=== PATIENT | female | born 1940 | race Caucasian/White ===

== ENCOUNTER 2018-01-30 07:09 | Inpatient (IN) ==
[2018-01-30] MEDS ORDERED: Metoprolol Tartrate 25 MG Tablet PO ONE (07:45)
[2018-01-30] MEDS ORDERED: Sodium Chlor 0.9% Inj 500 ML IV.CONT ONE (07:45)
[2018-01-30] MEDS ORDERED: Chlorhexidine Gluconate 2% 1 Pack (2 Cloths) TOPICAL ONE (07:45)
[2018-01-30] MEDS ORDERED: ceFAZolin 2 GM Premix Inj 2 GM/50 ML PIGGYBACK IV.SIG ONE (08:00)
[2018-01-30 08:36] LABS: Baso # (Auto) 0.1 th/mm3 (0.0-0.2); Baso % (Auto) 1.7 % (0.0-2.0); Eos # (Auto) 0.1 th/mm3 (0.0-0.4); Eos % (Auto) 3.6 % (0.0-4.0); Hematocrit 33.5 % (35.0-46.0); Hemoglobin 10.7 gm/dL (11.6-15.3); Lymph # (Auto) 0.9 th/mm3 (1.0-4.8); Mean Corpuscular HGB Conc 31.9 % (32.0-36.0); Mean Corpuscular Hemoglobin 25.7 pg (27.0-34.0); Mean Corpuscular Volume 80.7 fL (80.0-100.0); Mean Platelet Volume 8.2 fL (7.0-11.0); Mono # (Auto) 0.3 th/mm3 (0.0-0.9); Neut # (Auto) 1.9 th/mm3 (1.8-7.7); Neut % (Auto) 58.7 % (16.0-70.0); Platelet Count 251 th/mm3 (150-450); Red Blood Count 4.15 mil/mm3 (4.00-5.30); Red Cell Distribution Width 18.9 % (11.6-17.2); White Blood Count 3.3 th/mm3 (4.0-11.0)
[2018-01-30] MEDS ORDERED: Bupivacaine/Epinephrine Inj 0.25% 50 ML Vial ONE (09:55)
[2018-01-30] MEDS ORDERED: Post-op Orders (for Pharmacy) OTHER ONE (14:06)
[2018-01-30] MEDS ORDERED: Naloxone Inj 0.4 MG/ML Vial IV.PUSH PRN ×2 (14:06→14:10)
[2018-01-30] MEDS ORDERED: HYDROmorphone PCA Inj 6 MG/30 ML PCA.VIAL PCA PRN (14:10)
--- NOTE | 2018-01-30 14:14 | P.OP ---
- Preoperative Diagnosis (1) GI bleed (2) Cecum mass - Postoperative Diagnosis (1) GI bleed (2) Cecum mass Date of procedure: 01/30/18 Procedure: Laparoscopic assisted right hemicolectomy Anesthesia: LAINEYA Surgeon: Angelo Browne MD Road Conductor: Gabriela FIELDS Estimated blood loss (mL): 30 Pathology: other (Terminal ileum and right colon) Operation and Findings: Operative findings: The patient had a large cecal mass with omentum adherent to the cecum. A portion of the omentum was left en bloc with the specimen. Small hemangioma at the dome of the liver. The spleen appears somewhat abnormally enlarged and scarred.
[2018-01-30] MEDS ORDERED: fentaNYL Citrate Inj 100 MCG/2 ML Ampul ONE (14:18)
[2018-01-30] MEDS ORDERED: *morphine SULFATE 10 MG/ML PERIprocedure ONLY ONE (14:26)
[2018-01-30] MEDS ORDERED: *Meperidine Inj 25 MG/ML Vial PERIprocedural Use ONLY ONE (15:23)
[2018-01-30] MEDS: Ketorolac Inj 30 MG/ML (IVP) Vial IV.PUSH SCH ×2 (17:49→21:13)
[2018-01-30] MEDS ORDERED: Zolpidem Tartrate 5 MG Tablet PO PRN (21:00)
[2018-01-30] MEDS: ALPRAZolam 0.25 MG Tablet PO PRN (22:26)
[2018-01-31] MEDS: Ketorolac Inj 30 MG/ML (IVP) Vial IV.PUSH SCH ×4 (03:00→21:08)
[2018-01-31 06:19] LABS: Baso % (Auto) 0.2 % (0.0-2.0); Hematocrit 26.8 % (35.0-46.0); Hemoglobin 8.9 gm/dL (11.6-15.3); Lymph # (Auto) 0.7 th/mm3 (1.0-4.8); Lymph % (Auto) 8.2 % (9.0-44.0); Mean Corpuscular HGB Conc 33.3 % (32.0-36.0); Mean Corpuscular Hemoglobin 26.1 pg (27.0-34.0); Mean Corpuscular Volume 78.3 fL (80.0-100.0); Mean Platelet Volume 7.9 fL (7.0-11.0); Mono # (Auto) 0.5 th/mm3 (0.0-0.9); Mono % (Auto) 5.7 % (0.0-8.0); Neut # (Auto) 7.7 th/mm3 (1.8-7.7); Neut % (Auto) 85.9 % (16.0-70.0); Platelet Count 210 th/mm3 (150-450); Red Blood Count 3.42 mil/mm3 (4.00-5.30); Red Cell Distribution Width 19.4 % (11.6-17.2); White Blood Count 8.9 th/mm3 (4.0-11.0)
--- NOTE | 2018-01-31 10:08 | P.PNGS ---
Subjective Patient reports: no new complaints, pain is less, tolerating liquids well, no flatus Physical Exam Vital signs: Vital Signs 01/30/18 14:12 01/30/18 14:13 01/30/18 14:15 Temperature 96.5 F L Pulse Rate 66 66 Respiratory Rate 19 16 Blood Pressure 169/70 H 164/77 H Pulse Oximetry 100 100 01/30/18 14:28 01/30/18 14:30 01/30/18 14:45 Temperature Pulse Rate 66 67 Respiratory Rate 18 14 14 Blood Pressure 173/81 H 176/85 H Pulse Oximetry 100 100 01/30/18 15:00 01/30/18 15:15 01/30/18 15:30 Temperature 97 F L Pulse Rate 69 69 70 Respiratory Rate 18 19 21 Blood Pressure 175/87 H 176/84 H 165/80 H Pulse Oximetry 01/30/18 15:45 01/30/18 15:47 01/30/18 15:50 Temperature Pulse Rate 66 Respiratory Rate 16 16 Blood Pressure 161/73 H Pulse Oximetry 100 01/30/18 16:15 01/30/18 19:53 01/30/18 20:00 Temperature 97.4 F L 97.1 F L Pulse Rate 66 79 Respiratory Rate 20 2 L 20 Blood Pressure 187/80 H 210/91 H Pulse Oximetry 100 99 01/31/18 00:00 01/31/18 04:00 01/31/18 06:00 Temperature 97.6 F 97.7 F Pulse Rate 72 67 Respiratory Rate 18 18 16 Blood Pressure 167/80 H 163/73 H Pulse Oximetry 96 96 01/31/18 08:00 Temperature 97.7 F Pulse Rate 71 Respiratory Rate 20 Blood Pressure 163/77 H Pulse Oximetry 96 Intake & Output 01/30/18 01/31/18 01/31/18 18:59 06:59 18:59 Intake Total 2300 / 2300 1780 / 1780 Output Total 695 / 695 700 / 700 Balance 1605 / 1605 1080 / 1080 Weight 54.7 kg 50.5 kg Intake: IV 300 / 300 1300 / 1300 LR 1000 mL Inj 1,000 ML @ 100 1000 / 1000 mls/hr IV.CONT .Q10H [facility] Rx#: [id number] Ofirmev Inj 1,000 mg In 100 ml 100 / 100 300 / 300 @ 400 mls/hr IV.SIG Q6H [facility] Rx# :[id number] Ancef 2 GM Premix Inj 2 gm In 100 / 100 50 ml @ 100 mls/hr IV.SIG SHAFT TENDER ONE Rx#:[id number] Flagyl 500 MG Inj 100 ML @ 100 100 / 100 mls/hr IV.SIG SHAFT TENDER ONE Rx#: [id number] Oral 480 / 480 Anesthesia Amount 2000 / 1999 Output: Urine 375 / 375 Estimated Blood Loss 20 / 20 Urine Amount (Catheter) 300 / 300 700 / 700 Indwelling Urethral Catheter 300 / 300 700 / 700 Other: Weight On Admission 54.7 kg - Constitutional no acute distress - Routine Abdominal Exam Present: soft, tenderness Comments: incision C/D/I - Urinary Catheter Management Indwelling Urethral Catheter Cath placed during this visit: no Reason for continuing: Hourly intake/output Results - Labs 01/31/18 06:05 Laboratory Results - last 24 hr 01/30/18 01/31/18 07:55 06:05 WBC 8.9 D RBC 3.42 L Hgb 8.9 L Hct 26.8 L MCV 78.3 L MCH 26.1 L MCHC 33.3 RDW 19.4 H Plt Count 210 MPV 7.9 Neut % (Auto) 85.9 H Lymph % (Auto) 8.[address] [place] % (Auto) 5.7 Eos % (Auto) 0.0 Baso % (Auto) 0.2 Neut # (Auto) 7.7 Lymph # (Auto) 0.[address] [place] # (Auto) 0.5 Eos # (Auto) 0.0 Baso # (Auto) 0.0 WBC Differential . Differential Comment Auto diff final Blood Type B Positive Antibody Screen Negative MTS Gel Crossmatch See Detail Bld Prod Order Comment Assessment and Plan - Assessment (1) S/P colectomy Code(s): Z90.49 - Acquired absence of other specified parts of digestive tract Status: Acute Plan: d/c mejia d/c supervisor rose grading - Plan d/c mejia ambulate full liquids d/c supervisor rose grading
[2018-01-31] MEDS: Enoxaparin Inj 40 MG/0.4 ML Syringe SQ SCH (15:00)
[2018-01-31] MEDS: Atenolol 25 MG Tablet PO SCH (18:43)
[2018-01-31] MEDS: ALPRAZolam 0.25 MG Tablet PO PRN (21:08)
[2018-02-01] MEDS: Ketorolac Inj 30 MG/ML (IVP) Vial IV.PUSH SCH ×4 (04:07→20:06)
[2018-02-01] MEDS: Atenolol 25 MG Tablet PO SCH (08:09)
--- NOTE | 2018-02-01 09:11 | P.PNGS ---
Subjective Patient reports: no flatus, no bowel movement (c/o worsening abd pain) Physical Exam Vital signs: Vital Signs 01/31/18 12:00 01/31/18 16:00 01/31/18 20:00 Temperature 97.4 F L 98.4 F 98.2 F Pulse Rate 66 74 72 Respiratory Rate 20 20 20 Blood Pressure 162/75 H 160/73 H 188/77 H Pulse Oximetry 97 98 98 02/01/18 00:00 02/01/18 04:00 02/01/18 08:00 Temperature 98.9 F 97.5 F L 97.6 F Pulse Rate 74 72 74 Respiratory Rate 20 20 20 Blood Pressure 163/75 H 197/93 H 175/78 H Pulse Oximetry 94 L 96 98 Intake & Output 01/31/18 02/01/18 02/01/18 18:59 06:59 18:59 Intake Total 2490 / 2490 120 / 120 Balance 2490 / 2490 120 / 120 Weight 50.4 kg Intake: IV 2130 / 2130 LR 1000 mL Inj 1,000 ML @ 100 2030 / 2030 mls/hr IV.CONT .Q10H [facility] Rx#: [id number] Ofirmev Inj 1,000 mg In 100 ml 100 / 100 @ 400 mls/hr IV.SIG Q6H [place] Rx# :[id number] Oral 360 / 360 120 / 120 Other: # Voids 3 3 # Bowel Movements 0 - Constitutional mild distress Comments: secondary to pain - Routine Abdominal Exam Present: tenderness, distended - Urinary Catheter Management Indwelling Urethral Catheter Cath placed during this visit: no Reason for continuing: Hourly intake/output Results - Labs 01/31/18 06:05 Assessment and Plan - Assessment (1) S/P colectomy Code(s): Z90.49 - Acquired absence of other specified parts of digestive tract Status: Acute Plan: NPO, IVF will start Reglan Tylenol for pain - Plan NPO prokinetic Tylenol for pain
[2018-02-01] MEDS ORDERED: Dextrose 5%/NaCl 0.45% Inj 1,000 ML IV.CONT SCH (10:00)
[2018-02-01] MEDS: KCL 20 mEq/D5W/NaCl 0.45% Inj 1,000 ML IV.CONT SCH ×2 (10:23→20:06)
[2018-02-01] MEDS: Enoxaparin Inj 40 MG/0.4 ML Syringe SQ SCH (12:47)
[2018-02-01] MEDS: ALPRAZolam 0.25 MG Tablet PO PRN (21:54)
[2018-02-02] MEDS: Ketorolac Inj 30 MG/ML (IVP) Vial IV.PUSH SCH ×4 (02:09→21:06)
[2018-02-02] MEDS: KCL 20 mEq/D5W/NaCl 0.45% Inj 1,000 ML IV.CONT SCH (06:05)
--- NOTE | 2018-02-02 09:19 | XR ---
EXAM DATE: 02/02/2018 9:14 AM EST AGE/SEX: 77 years / Female INDICATIONS: Shortness of breath. CLINICAL DATA: This is the patient's subsequent encounter. Patient reports that signs and symptoms h ave been present for 1 week and indicates a pain score of 0/10. MEDICAL/SURGICAL HISTORY: Hypertension. . [place] [facility] [place]. . FINDINGS: Heart is minimally enlarged. There is minimal consolidation and fluid in the right base. Left lung is clear. The portion of the bony skeleton visualized is unremarkable. CONCLUSION: Consolidation fluid in the right base somewhat suspicious for inflammatory process. Mild cardiomegaly without overt failure. Electronically signed by: Landon Aguayo MD Board Certified Radiologist 02/02/2018 9:17 AM EST
[2018-02-02] MEDS: Atenolol 25 MG Tablet PO SCH (09:31)
[2018-02-02] MEDS: ALPRAZolam 0.25 MG Tablet PO PRN ×2 (10:17→23:50)
--- NOTE | 2018-02-02 11:25 | P.PNGS ---
Subjective Interval history: She c/o pain at incision but is receiving only tylenol and toradol. Was made NPO yesterday and she ended up having multiple liquid Bms last night. C/o some shortness of breath. Physical Exam Vital signs: Vital Signs 02/01/18 12:00 02/01/18 14:37 02/01/18 16:00 Temperature 98.1 F 98.1 F Pulse Rate 69 69 64 Respiratory Rate 22 22 Blood Pressure 183/89 H 166/77 H 148/72 H Pulse Oximetry 99 22 L 02/01/18 20:00 02/01/18 21:09 02/02/18 00:00 Temperature 97.7 F 98.3 F Pulse Rate 65 68 Respiratory Rate 16 16 17 Blood Pressure 171/79 H 169/79 H Pulse Oximetry 99 98 02/02/18 03:55 02/02/18 04:00 02/02/18 08:00 Temperature 98.1 F Pulse Rate 65 78 Respiratory Rate 16 20 Blood Pressure 150/72 H 223/95 H Pulse Oximetry 98 Intake & Output 02/01/18 02/02/18 02/02/18 18:59 06:59 18:59 Intake Total 580 / 580 1999 Output Total 4 / 4 Balance 576 / 576 1999 Weight 62.4 kg Intake: IV 100 / 100 1999 D5W/1/2NS + KCL 20 mEq Inj , 1999 000 ML @ 100 mls/hr IV.CONT . Q10H [facility] Rx#:[id number] Ofirmev Inj 1,000 mg In 100 ml 100 / 100 @ 400 mls/hr IV.SIG Q6H PRN Rx# :[id number] Oral 480 / 480 Output: Urine 4 / 4 Other: # Voids 1 3 Date of Last Bowel Movement 02/01/18 02/01/18 # Bowel Movements 3 Narrative: NAD, comfortable in bed Abd: soft, inc c/d/i - Urinary Catheter Management Indwelling Urethral Catheter Cath placed during this visit: no Reason for continuing: Hourly intake/output Results - Labs 01/31/18 06:05 Laboratory Results - last 24 hr 01/30/18 07:55 MTS Gel Crossmatch See Detail - Imaging Imaging: ITS Impressions Chest X-Ray 02/02/18 00:00 CONCLUSION: Consolidation fluid in the right base somewhat suspicious for inflammatory process. Mild cardiomegaly without overt failure. Assessment and Plan - Assessment (1) S/P colectomy Code(s): Z90.49 - Acquired absence of other specified parts of digestive tract Status: Acute - Plan POD 3 s/p right colectomy. + Bms. Hgb decreased. + SOB. Soft diet. Start lortab. Repeat cbc. Check CXR. Possible dc home in am.
[2018-02-02 11:36] LABS: Hematocrit 29.2 % (35.0-46.0); Hemoglobin 9.3 gm/dL (11.6-15.3); Mean Corpuscular Hemoglobin 25.7 pg (27.0-34.0); Mean Corpuscular Volume 80.6 fL (80.0-100.0); Mean Platelet Volume 8.2 fL (7.0-11.0); Platelet Count 224 th/mm3 (150-450); Red Blood Count 3.62 mil/mm3 (4.00-5.30); White Blood Count 5.4 th/mm3 (4.0-11.0)
--- NOTE | 2018-02-02 13:25 | P.OP ---
- Preoperative Diagnosis (1) GI bleed (2) Cecum mass - Postoperative Diagnosis (1) GI bleed (2) Cecum mass Date of procedure: 01/30/18 Procedure: Laparoscopic assisted right hemicolectomy Anesthesia: MARKIE Surgeon: Angelo Browne MD Revenue Accounting Manager: Gabriela FIELDS Estimated blood loss (mL): 30 Pathology: other (right colon with attached terminal ileum) Operation and Findings: Operative findings: The patient had a large cecal mass with omentum adherent to the cecum. A portion of the omentum was left en bloc with the specimen. Small hemangioma at the dome of the liver. The spleen appears somewhat abnormally enlarged and scarred. Procedure in detail: The patient was taken to the operating room and placed in supine position. General endotracheal anesthesia was induced. The abdomen was prepped and draped in usual sterile fashion and a surgical timeout was performed to verify correct patient procedure and site. Valerio catheter was placed. Local anesthetic was injected in the skin and subcutaneous tissue to the left of the umbilicus and a 5 mm incision made. The 5 mm Optiview trocar with laparoscope in place was used to directly enter the abdomen which was then insufflated to 15 mmHg with CO2 gas which the patient tolerated well. A 5 mm port was then placed in the lower midline and another in the upper left abdomen. The patient was placed in Trendelenburg and turned to the left. Attention was turned to the cecum. A large mass was obvious and there was omentum adherent to the cecum. The omentum adherent to the cecum was amputated with the harmonic scalpel leaving a portion of the omentum en bloc with the specimen. The lateral peritoneum at the terminal ileum and cecum was incised with the harmonic scalpel and the white line of Toldt all the way up to the hepatic flexure was incised. Blunt dissection and use of the harmonic scalpel provided further mobilization laterally. The patient is thin and the colon is quite mobile. At this point, the gastrocolic omentum is from the transverse colon from the midportion proximally. The hepatic flexure was taken down with harmonic scalpel. The entire specimen is now quite mobile. A transverse incision is made in the right abdomen. Dissection is carried through subcutaneous tissue with electrocautery and the anterior fascia. Rectus muscle fibers were elevated and divided with cautery. The posterior rectus fascia was sharply entered. The specimen is able to easily be brought up through the incision. The ileocolic artery pedicle is isolated and ligated with 2 #1 Vicryl ties and divided. The mesentery was divided with the harmonic scalpel to the terminal ileum 10-15 cm from the ileocecal valve. The terminal ileum then was divided with the blue load 75 mm stapler. Next, the right branch of the middle colic vessels was divided with the harmonic scalpel. The remaining mesentery was divided. The transverse colon was divided with the 75 mm blue load stapler. The specimen was removed. A koqi-[id number] functional end- to-end anastomosis was then fashioned between the terminal ileum and transverse colon using a blue load stapler. A 3-0 silk suture was placed at the crotch of the staple line. There is no bleeding no tension or hematoma at the anastomosis. The end enterotomy was closed with a TX 60 blue load stapler. The mesenteric defect then was approximated with running 3-0 silk. The anastomosis was then replaced into the abdominal cavity. The fascia was closed with running #1 PDS suture in 2 layers. Skin closed with a wide skin stapler. The skin at the port sites was closed with subcuticular 4-0 Monocryl and Dermabond. The patient tolerated the procedure well and was extubated taken to PACU in stable condition.
[2018-02-02] MEDS: Enoxaparin Inj 40 MG/0.4 ML Syringe SQ SCH (14:05)
[2018-02-02 23:51] VITALS: RESP 20
[2018-02-03] MEDS: Ketorolac Inj 30 MG/ML (IVP) Vial IV.PUSH SCH ×2 (05:33→08:21)
[2018-02-03] MEDS: Atenolol 25 MG Tablet PO SCH (08:20)
[2018-02-03 09:43] VITALS: BP 180/88; PULSE 71; TEMP 98; O2SAT 96
--- NOTE | 2018-02-03 11:10 | P.DS ---
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 She was scheduled for lap assisted right colectomy. DS: Diagnosis - Discharge Diagnosis (1) S/P colectomy Status: Acute (2) Cecum mass Status: Acute DS: Medications - Discharge Medications Prescriptions: hydrocodone-acetaminophen 1 tab PO Q4H PRN #15 tab PRN Reason: Pain ketorolac 10 mg PO Q6H PRN #12 tab PRN Reason: Pain DS: Summary Hospital Course: Post op from lap assisted right colectomy the patient did well overall. She ambulated well. She initially was not tolerating oral intake but began to have multiple bowel movts, no nausea, and tolerated soft foods well. Pain controlled with toradol and a few narcotic po meds although she tried to avoid narcotics. - Time Spent with Patient Total time spent providing and/or coordinating discharge services: Less than 30 minutes - Quality: VTE Deep Vein Thrombosis/Pulmonary Embolism Present on Admission: No Exam Vital signs: Vital Signs 02/02/18 12:00 02/02/18 16:00 02/02/18 20:00 Temperature 97.3 F L 97.7 F 97.4 F L Pulse Rate 63 64 66 Respiratory Rate 17 16 19 Blood Pressure 167/69 H 174/84 H 163/75 H Pulse Oximetry 98 97 02/02/18 23:50 02/03/18 04:00 02/03/18 08:05 Temperature 97.2 F L 98 F Pulse Rate 70 71 Respiratory Rate 20 20 Blood Pressure 197/90 H 144/70 H 180/88 H Pulse Oximetry 100 96 Intake & Output 02/02/18 02/03/18 02/03/18 18:59 06:59 18:59 Intake Total 800 / 800 1300 / 1300 Balance 800 / 800 1300 / 1300 Weight 62.4 kg Intake: IV 800 / 800 D5W/1/2NS + KCL 20 mEq Inj 1, 550 / 550 000 ML @ 100 mls/hr IV.CONT . Q10H [facility] Rx#:[id number] LR 1000 mL Inj 1,000 ML @ 100 250 / 250 mls/hr IV.CONT .Q10H [facility] Rx#: [id number] Oral 1300 / 1300 Other: # Voids 2 Date of Last Bowel Movement 02/03/18 02/03/18 # Bowel Movements 1 Narrative: NAD Abd: soft, mild post op ttp, inc c/d/i Results Procedures completed during hospitalization: Lap assisted right colectomy Completed studies during hospitalization: Pending at discharge 01/30/18 14:22 Surgical [PTH] Routine Labs on day of discharge: Labs from last 24 hours 02/02/18 11:20 WBC 5.4 RBC 3.62 L Hgb 9.3 L Hct 29.2 L MCV 80.6 MCH 25.7 L MCHC 32.0 RDW 19.0 H Plt Count 224 MPV 8.2 - Impressions ITS Impressions Chest X-Ray 02/02/18 00:00 CONCLUSION: Consolidation fluid in the right base somewhat suspicious for inflammatory process. Mild cardiomegaly without overt failure. Discharge Plan - Discharge Disposition Patient Disposition: 01 Discharge Home - Discharge Condition Condition: Good - Discharge Order Discharge Orders: Discharge Order (Routine); Ordered 02/03/18 Ordered By: Angelo Browne - Physicians Team Primary Care Provider: Wu Orourke Attending Provider: Angelo Browne - Rxs /Orders / Referrals /Forms Prescriptions: New hydrocodone-acetaminophen 5-325 mg Tablet 1 tab PO Q4H PRN (Reason: Pain) Qty: 15 RF: 0 ketorolac 10 mg Tablet 10 mg PO Q6H PRN (Reason: Pain) Qty: 12 RF: 0 Continue alprazolam 0.25 mg Tablet 0.25 mg PO BID atenolol 25 mg Tablet 25 mg PO DAILY Discontinued acetaminophen [Tylenol] 325 mg Tablet 325 mg PO Q4-6H MDD 500 PRN (Reason: Pain, Moderate) Referrals: Angelo Browne MD [GENERAL SURGERY] - 02/16/18 9:30 am Wu Orourke MD, PhD [Primary Care Provider] - See Instructions (Office will call you to schedule follow up appointment ) - Discharge Instructions Patient Printed Instructions: Hydrocodone/Acetaminophen (By mouth), Ketorolac ( By mouth), Laparoscopic Bowel Resection (DC)
== END 2018-02-03 11:41 | disposition home or self-care (01) ==
LOC: HSDI 07:09 → N07 16:06
PROVIDERS: ADMIT Surgery; ATTEND Surgery

== ENCOUNTER 2018-04-03 06:37 | Inpatient (IN) ==
--- NOTE | 2018-04-03 07:26 | ED ---
HPI General Chief Complaint: Chest Pain Stated Complaint: Chest Pain Time Seen by Provider: 04/03/18 06:55 History of Present Illness HPI narrative: This is a 73-year-old female with history of colon cancer, hypertension, iron deficiency, presents today with complaints of chest pain/ pressure starting early this morning. Patient states she woke up at 130 with pressure across her chest. She states that she also felt palpitations associated with it. She states that she took a half of a Xanax and 162 mg of aspirin despite being told not to take aspirin. She states she was able to go back to sleep however woke up at 3:30 with the same pressure. She denies any radiation associated with it. She denies any true dyspnea. There is no nausea or diaphoresis associated with it. The patient has not had anything like this previously. Related Data Home Medications Medication Instructions Recorded Confirmed alprazolam 0.25 mg PO BID 01/21/18 04/03/18 atenolol 25 mg PO DAILY 01/21/18 04/03/18 capecitabine 1,500 mg PO Q12H 04/03/18 04/03/18 Allergies Allergy/AdvReac Type Severity Reaction Status Date / Time cyclobenzaprine Allergy Severe Restlessnes Verified 01/30/18 07:43 [From Flexeril] s shellfish derived Allergy Severe Rash Verified 01/30/18 07:43 Review of Systems ROS: all other systems reviewed are negative Constitutional Reports system reviewed and no additional complaints, except as [facility] Eyes Reports system reviewed and no additional complaints, except as [facility] ENT Reports system reviewed and no additional complaints, except as [facility] Cardiovascular Reports chest pain (Pressure), Denies irregular heart rhythm, Reports palpitations and Denies dyspnea Respiratory Denies cough and Denies dyspnea Gastrointestinal Denies abdominal pain, Denies nausea and Denies vomiting Genitourinary Reports system reviewed and no additional complaints, except as [facility] Musculoskeletal Reports system reviewed and no additional complaints, except as [facility] Neurologic Reports system reviewed and no additional complaints, except as [facility] PMFSH Medical History Medical History Colon cancer (Acute) Anxiety (Acute) Back pain (Acute) History of DVT (deep vein thrombosis) (Acute) History of blood product transfusion (Acute) History of phlebitis (Acute) Hypertension (Acute) Raynaud disease (Acute) Shortness of breath (Acute) Surgical History Surgical History History of D&C (Acute) History of appendectomy (Acute) History of breast implant (Acute) History of cataract extraction with lens replacement (Acute) Social History Social History Substance History: No History of Abuse Second Hand Smoke Exposure: No Smoking Status: Never smoker How Often Do You Have a Drink Containing Alcohol: Never Recent Travel in [facility] within the Last 8 Weeks: No Recent Out of Country Travel within the Last 8 Weeks: No Immunization History Tetanus Immunization: Unsure Exam Narrative Exam Narrative: GENERAL: Well-developed well-nourished female who appears anxious in no acute respiratory distress. SKIN: Focused skin assessment warm/dry. HEAD: Atraumatic. Normocephalic. EYES: Extraocular muscles were intact. No scleral icterus. No injection or drainage. ENT: No nasal bleeding or discharge. Mucous membranes pink and moist. NECK: Trachea midline. Supple. No JVD. CARDIOVASCULAR: Regular rate and rhythm. No murmur appreciated. RESPIRATORY: No accessory muscle use. Clear to auscultation. Breath sounds equal bilaterally. GASTROINTESTINAL: Abdomen soft, non-tender, nondistended. MUSCULOSKELETAL: No obvious deformities. No clubbing. No cyanosis. No edema. NEUROLOGICAL: Awake and alert. No obvious cranial nerve deficits. Motor grossly within normal limits. Normal speech. Course Initial Documented Vital Signs Temperature 98.0 F 04/03/18 06:43 Pulse Rate 79 04/03/18 06:43 Respiratory Rate 18 04/03/18 06:43 Blood Pressure 213/100 H 04/03/18 06:43 Pulse Oximetry 100 04/03/18 06:43 Last Documented Vital Signs Temperature 98.0 F 04/03/18 06:43 Pulse Rate 69 04/03/18 08:31 Respiratory Rate 18 04/03/18 08:31 Blood Pressure 171/79 H 04/03/18 08:31 Pulse Oximetry 100 04/03/18 08:31 Medical Decision Making MDM Narrative Medical decision making narrative: This is a 77-year-old female with history of colon cancer, status post colectomy, who is on oral chemotherapy, presents today with complaints of chest pressure x2 episodes this morning. Patient was given nitroglycerin in the [facility] ambulance. She reports it took her pain from an 8 down to a 0. She is still pain-free. EKG showed no evidence of acute ST elevation or depression. Cardiac enzymes were within normal limits. I discussed that given her symptoms, cardiac history of hypertension, and age, I would recommend that she be admitted to the chest pain center for rule out protocol. She is amenable to this plan. Medical Screen Exam Complete: Yes Emergency Medical Condition: Yes Differential Diagnosis Differential Diagnosis: ACS versus anxiety versus GERD versus chemo related adverse reaction Lab Data Result diagrams: 04/03/18 06:45 04/03/18 06:45 Lab Results 04/03/18 04/03/18 Range/Units 06:45 06:45 WBC 5.4 (4.0-11.0) th/mm3 RBC 4.41 (4.00-5.30) mil/mm3 Hgb 11.4 L (11.6-15.3) gm/dL Hct 35.1 (35.0-46.0) % MCV 79.6 L (80.0-100.0) fL MCH 25.9 L (27.0-34.0) pg MCHC 32.6 (32.0-36.0) % RDW 20.7 H (11.6-17.2) % Plt Count 214 (150-450) th/mm3 MPV 7.6 (7.0-11.0) fL Neut % (Auto) 69.8 (16.0-70.0) % Lymph % (Auto) 24.7 (9.0-44.0) % [place] % (Auto) 5.0 (0.0-8.0) % Eos % (Auto) 0.1 (0.0-4.0) % Baso % (Auto) 0.4 (0.0-2.0) % Neut # (Auto) 3.7 (1.8-7.7) th/mm3 Lymph # (Auto) 1.3 (1.0-4.8) th/mm3 [place] # (Auto) 0.3 (0.0-0.9) th/mm3 Eos # (Auto) 0.0 (0.0-0.4) th/mm3 Baso # (Auto) 0.0 (0.0-0.2) th/mm3 WBC Differential . Differential Comment Auto diff final Sodium 134 L (136-145) meq/L Potassium 4.1 (3.5-5.1) meq/L Chloride 101 (98-107) meq/L Carbon Dioxide 25.5 (21.0-32.0) meq/L Anion Gap 8 (5-15) meq/L BUN 15 (7-18) mg/dL Creatinine 0.81 (0.50-1.00) mg/dL Estimated GFR 69 L (>89) mL/min Random Glucose 114 H (74-106) mg/dL Calcium 9.4 (8.5-10.1) mg/dL Total Bilirubin 0.2 (0.2-1.0) mg/dL AST 18 (15-37) U/L ALT 16 (10-53) U/L Alkaline Phosphatase 57 (45-117) U/L Total Creatine Kinase 48 (26-192) U/L Troponin I 0.04 (0.02-0.05) ng/mL Total Protein 7.4 (6.4-8.2) g/dL Albumin 3.9 (3.4-5.0) g/dL Imaging Data Radiologist's impression: Chest X-Ray 04/03/18 06:55 CONCLUSION: No focal or acute pulmonary infiltrates. Discharge Plan Discharge Disposition Patient Disposition: ED Admit(ED Internal Use Only) Discharge Order Discharge Orders: ED Use Only Admit Order (Routine); Ordered 04/03/18 Ordered By: Kike Brunner Discharge Details Diagnosis: Chest pain, Hypertension, History of colon cancer Physicians Team ED Provider: Kike Brunner Primary Care Provider: Wu Orourke Attending Provider: Mónica Muñoz ED Status: Admitted Observation Patient
[2018-04-03 07:35] LABS: Baso % (Auto) 0.4 % (0.0-2.0); Eos % (Auto) 0.1 % (0.0-4.0); Hematocrit 35.1 % (35.0-46.0); Hemoglobin 11.4 gm/dL (11.6-15.3); Lymph # (Auto) 1.3 th/mm3 (1.0-4.8); Lymph % (Auto) 24.7 % (9.0-44.0); Mean Corpuscular HGB Conc 32.6 % (32.0-36.0); Mean Corpuscular Hemoglobin 25.9 pg (27.0-34.0); Mean Corpuscular Volume 79.6 fL (80.0-100.0); Mean Platelet Volume 7.6 fL (7.0-11.0); Mono # (Auto) 0.3 th/mm3 (0.0-0.9); Neut # (Auto) 3.7 th/mm3 (1.8-7.7); Neut % (Auto) 69.8 % (16.0-70.0); Platelet Count 214 th/mm3 (150-450); Red Blood Count 4.41 mil/mm3 (4.00-5.30); Red Cell Distribution Width 20.7 % (11.6-17.2); White Blood Count 5.4 th/mm3 (4.0-11.0)
[2018-04-03 07:57] LABS: Albumin 3.9 g/dL (3.4-5.0); Anion Gap 8 meq/L (5-15); Aspartate Aminotransferase 18 U/L (15-37); Blood Urea Nitrogen 15 mg/dL (7-18); Calcium 9.4 mg/dL (8.5-10.1); Carbon Dioxide 25.5 meq/L (21.0-32.0); Chloride 101 meq/L (98-107); Glomerular Filtration Rate 69 mL/min (>89); Glucose,Random 114 mg/dL (74-106); Potassium 4.1 meq/L (3.5-5.1); Sodium 134 meq/L (136-145)
[2018-04-03 07:59] LABS: Alanine Aminotransferase 16 U/L (10-53)
[2018-04-03 08:02] LABS: Alkaline Phosphatase 57 U/L (45-117); Total Protein 7.4 g/dL (6.4-8.2); Troponin I 0.04 ng/mL (0.02-0.05)
[2018-04-03 08:03] LABS: Creatine Kinase 48 U/L (26-192)
--- NOTE | 2018-04-03 08:04 | XR ---
EXAM DATE: 04/03/2018 7:59 AM EST AGE/SEX: 77 years / Female INDICATIONS: Chest pain. CLINICAL DATA: This is the patient's initial encounter. Patient reports that signs and symptoms have been present for 1 day and indicates a pain score of 3/10. MEDICAL/SURGICAL HISTORY: Carcinoma, colon. None. [place] [facility] [place]. . FINDINGS: A single AP view of the chest demonstrates the lungs to be symmetrically aerated without evidence of mass, infiltrate or effusion. The previously noted infiltrate and effusion the right lung base has re solved. There is mild elevation right hemidiaphragm. The cardiomediastinal contours are unremarkable. Osseous structures are intact. CONCLUSION: No focal or acute pulmonary infiltrates. Electronically signed by: Martin Chin MD Board Certified Radiologist 04/03/2018 8:03 AM EST
[2018-04-03] MEDS ORDERED: ALPRAZolam 0.25 MG Tablet PO PRN (10:43)
[2018-04-03] MEDS ORDERED: Atenolol 25 MG Tablet PO SCH (11:00)
[2018-04-03 11:11] LABS: Troponin I 0.08 ng/mL (0.02-0.05)
--- NOTE | 2018-04-03 11:30 | P.HPFP ---
History of Present Illness Primary Care Physician: Wu Orourke MD, PhD History of Present Illness: This patient is a 77-year-old female with a history of stage III colon cancer status post hemicolectomy who presents to the ED with a 1 day history of chest pain 3 days after starting new chemotherapy Capecitabine. The patient reports that 3 days ago she began a new chemotherapy medication at 3 pills twice a day. She reports that this morning she woke up at 0130 with a heaviness in her chest. She reports she has had anxiety attacks in the past but this did not feel like one. She describes the sensation as pressure, constant, and nonradiating in the center of her chest and rated as a 10/10. At 130 this morning she reports that she took half of a 325 mg aspirin as well as a 0.25 mg alprazolam. After this she was able to fall back asleep but woke up again at 3: 30 in the morning due to chest heaviness accompanied by her rapid heart rate with palpitations that self resolved. After looking for chemotherapy paperwork she saw that her current symptoms might be a reaction to her medication and called an ambulance. In route patient reports being given nitro that gave her significant relief. She is currently not expressing any pain at the time of interview. She denies any nausea, vomiting, fevers, chills, diaphoresis, arm pain or jaw pain. PMHx: HTN, colon caner stage 3 due to lymphnode 02/28 and size, DVT with , cataracts Surgical Hx: Appendectomy at 11, breast implants 1987, cataract surgery in right eye, partial colectomy 02/03 with anastomosis. Meds: Alprazolam, atenolol, capecitabine Allergies: shellfish causes eye swelling, cyclobenzaprine unknown reaction Social: Lives alone, over 25 years ago. Has 2 children 50 and 48 and healthy. 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 Never smoker, used to drink 2 glasses of wine 3 times a week, last drink in Feb. No drugs. Code: Full code Of note: Patient reports having never thought about possible CODE STATUS and the idea give her significant anxiety. At this time she agreed to be full code but will give it continued thought. PCP: Dr. Brown Orourke Onc: Dr. Horta - Diagnosis (1) Chest pain (2) Hypertension (3) History of colon cancer (4) S/P colectomy (5) Nutrition, metabolism, and development symptoms Review of Systems Constitutional: Denies chills, Denies fever(s), Denies headache(s), Denies dizziness, Eyes: Denies change in vision, Denies double vision, Denies blurry vision Cardiovascular: Endorses chest pain as described in HPI Respiratory: Denies shortness of breath or wheezing Gastrointestinal: Denies abdominal pain, Denies constipation, Denies loose stools, Denies nausea, Denies vomiting Genitourinary: Denies difficulty urinating, Denies painful urination, Denies urinary frequency, Denies blood in urine PMFSH - History History Provided By: Patient - Medical History Medical History: Medical History (Last Updated 04/03/18 @ 06:45 by Alan Tiwari) Colon cancer Anxiety Back pain History of DVT (deep vein thrombosis) History of blood product transfusion History of phlebitis Hypertension Raynaud disease Shortness of breath - Surgical History Surgical History: Surgical History (Last Reviewed 01/30/18 @ 07:42 by Natalia Slade RN) History of D&C History of appendectomy History of breast implant History of cataract extraction with lens replacement - Family History Family History: Family History (Last Reviewed 01/23/18 @ 11:11 by Ruthie Dumont) Other Family history normal - Tobacco History Second Hand Smoke Exposure: No Smoking Status: Never smoker - Alcohol History How Often Do You Have a Drink Containing Alcohol: Never - Substance Use History Substance History: No History of Abuse - Travel History Recent Travel in the [place] Within the Last 8 Weeks: No Recent Travel Out of the Country Within the Last 8 Weeks: No - Immunization History Tetanus Immunization: Unsure Medications and Allergies Active Medications: Active Medications Alprazolam (Xanax) 0.25 mg PO Q6H PRN PRN Reason: ANXIETY Atenolol (Tenormin) 25 mg PO DAILY MED Sodium Chloride (Ns Flush) 2 ml IV.FLUSH UNSCH PRN PRN Reason: FLUSH AFTER USING IV ACCESS Allergies Allergy/AdvReac Type Severity Reaction Status Date / Time cyclobenzaprine Allergy Severe Restlessnes Verified 01/30/18 07:43 [From Flexeril] s shellfish derived Allergy Severe Rash Verified 01/30/18 07:43 Home Medications Medication Instructions Recorded Confirmed Type alprazolam 0.25 mg PO BID 01/21/18 04/03/18 History atenolol 25 mg PO DAILY 01/21/18 04/03/18 History capecitabine 1,500 mg PO Q12H 04/03/18 04/03/18 History Exam Vital signs: Vital Signs 04/03/18 06:43 04/03/18 07:12 04/03/18 08:31 Temperature 98.0 F Pulse Rate 79 73 69 Respiratory Rate 18 20 18 Blood Pressure 213/100 H 213/100 H 171/79 H Pulse Oximetry 100 100 100 Intake & Output 04/02/18 04/03/18 04/03/18 18:59 06:59 18:59 Weight 53.524 kg Narrative: GENERAL: Well-nourished, well-developed patient. Patient appears anxious and unsettled. SKIN: Warm and dry. No rash. EYES: No scleral icterus. No injection or drainage. PERRLA. EOMI. HENT: Normocephalic. Atraumatic. Mucous membranes dry. Oral pharyngeal exam benign. NECK: Supple, trachea midline. No JVD or lymphadenopathy. CARDIOVASCULAR: Regular rate and rhythm without obvious murmurs, gallops, or rubs. No pain upon palpation over the chest. RESPIRATORY: Breath sounds equal bilaterally. No accessory muscle use. CTAB. GASTROINTESTINAL: Abdomen soft, non-tender, nondistended. BS WNL. Surgical scar on the right lower quadrant from previous colectomy. MUSCULOSKELETAL: No cyanosis or edema. Strength grossly WNL. Patient has prominent lower extremity veins. BACK: Nontender without obvious deformity. No CVA tenderness. NEURO/PSYCH: Afocal. Awake, alert, and oriented x3. Results - Labs Result diagrams: 04/03/18 06:45 04/03/18 06:45 Abnormal lab results 04/03/18 04/03/18 Range/Units 06:45 06:45 Hgb 11.4 L (11.6-15.3) gm/dL MCV 79.6 L (80.0-100.0) fL MCH 25.9 L (27.0-34.0) pg RDW 20.7 H (11.6-17.2) % Sodium 134 L (136-145) meq/L Estimated GFR 69 L (>89) mL/min Random Glucose 114 H (74-106) mg/dL Short CBC 04/03/18 Range/Units 06:45 WBC 5.4 (4.0-11.0) th/mm3 Hgb 11.4 L (11.6-15.3) gm/dL Hct 35.1 (35.0-46.0) % Plt Count 214 (150-450) th/mm3 BMP 04/03/18 06:45 Sodium 134 L Potassium 4.1 Chloride 101 Carbon Dioxide 25.5 BUN 15 Creatinine 0.81 Calcium 9.4 Cardiac Enzymes 04/03/18 Range/Units 06:45 Total Creatine Kinase 48 (26-192) U/L Troponin I 0.04 (0.02-0.05) ng/mL Liver Function 04/03/18 Range/Units 06:45 Total Bilirubin 0.2 (0.2-1.0) mg/dL AST 18 (15-37) U/L ALT 16 (10-53) U/L Alkaline Phosphatase 57 (45-117) U/L Albumin 3.9 (3.4-5.0) g/dL - Imaging Impressions Chest X-Ray 04/03/18 06:55 CONCLUSION: No focal or acute pulmonary infiltrates. Caprini VTE Risk Assessment Caprini VTE Risk Assessment: Moderate/High Risk (score >= 2) Caprini Risk Assessment Model: Point Value = 1 Point Value = 2 Point Value = 3 Point Value = 5 Age 41-60 Minor surgery BMI > 25 kg/m2 Swollen legs Varicose veins or History of unexplained or recurrent spontaneous Oral contraceptives or hormone replacement Sepsis (< 1 month) Serious lung disease, including pneumonia (< 1 month) Abnormal pulmonary function Acute myocardial infarction Congestive heart failure (< 1 month) History of inflammatory bowel disease Medical patient at bed rest Age 61-74 Arthroscopic surgery Major open surgery (> 45 min) Laparoscopic surgery (> 45 min) Malignancy Confined to bed (> 72 hours) Immobilizing plaster cast Central venous access Age >= 75 History of VTE Family history of VTE Factor V Leiden Prothrombin [id number] Lupus anticoagulant Anticardiolipin antibodies Elevated serum homocysteine Heparin-induced thrombocytopenia Other congenital or acquired thrombophilia Stroke (< 1 month) Elective arthroplasty Hip, pelvis, or leg fracture Acute spinal cord injury (< 1 month) Prophylaxis Regimen: Total Risk Factor Score Risk Level Prophylaxis Regimen 0-1 Low Early ambulation 2 Moderate Order ONE of the following: *Sequential Compression Device (SCD) *Heparin 5000 units SQ BID 3-4 Higher Order ONE of the following medications: *Heparin 5000 units SQ TID *Enoxaparin/Lovenox 40 mg SQ daily (WT < 150 kg, CrCl > 30 mL/min) *Enoxaparin/Lovenox 30 mg SQ daily (WT < 150 kg, CrCl > 10-29 mL/min) *Enoxaparin/Lovenox 30 mg SQ BID (WT < 150 kg, CrCl > 30 mL/min) AND/OR *Sequential Compression Device (SCD) 5 or more Highest Order ONE of the following medications: *Heparin 5000 units SQ TID (Preferred with Epidurals) *Enoxaparin/Lovenox 40 mg SQ daily (WT < 150 kg, CrCl > 30 mL/min) *Enoxaparin/Lovenox 30 mg SQ daily (WT < 150 kg, CrCl > 10-29 mL/min) *Enoxaparin/Lovenox 30 mg SQ BID (WT < 150 kg, CrCl > 30 mL/min) AND *Sequential Compression Device (SCD) Assessment and Plan - Assessment (1) Chest pain Code(s): R07.9 - Chest pain, unspecified Status: Acute Plan: This patient is a 77-year-old female with a history of stage III colon cancer status post hemicolectomy who presents to the ED with a 1 day history of chest pain 3 days after starting new chemotherapy Capecitabine. -DDx includes ACS, GERD, PE, pneumonia, panic attack, myocarditis, costochondritis. -Pt. states CP has resolved with nitro. -No echocardiogram on file -EKG showed -CXR showed no focal or acute pulmonary infiltrate -Initial Trop 0.04 with follow-up being 0.08 -BNP 145 -Cardiology notified by ED physician. Patient will be taken to [facility] this p.m. Plan: -Hold Capecitabine. -Hold home atenolol -Trend cardiac enzymes -Supplemental O2. -Daily aspirin. -Morphine 2mg Q2 hrs PRN chest pain only. -Metoprolol 25 PO BID med (hold for low BP and HR). -Begin atorvastatin 40 -Begin metoprolol 25 twice daily -Begin lisinopril 2.5 -Stat Nitropaste half an inch as needed for pain -Monitor on telemetry. -N.p.o., begin heart healthy diet after cath -AM BMP + Mg to detect/correct electrolyte abnormalities that could lower arrythmia threshold. (2) Hypertension Code(s): I10 - Essential (primary) hypertension Status: Acute Plan: Patient presents with history of hypertension with a blood pressure of 213/100 on admission. Patient now 136/68. -Hold home atenolol -Begin metoprolol 25 twice daily -Begin lisinopril 2.5 daily (3) History of colon cancer Code(s): Z85.038 - Personal history of other malignant neoplasm of large intestine Status: Acute Plan: Patient status post hemicolectomy secondary to stage III colon cancer. Patient began recent oral chemotherapy days ago and was unable to tolerate it. -Hold Capecitabine (4) S/P colectomy Code(s): Z90.49 - Acquired absence of other specified parts of digestive tract Status: Acute Plan: Stable, no intervention required at this time. (5) Nutrition, metabolism, and development symptoms Code(s): R63.8 - Other symptoms and signs concerning food and fluid intake Status: Acute Plan: Fluids: Not indicated at this time Electrolytes: Replete as needed Nutrition: N.p.o. DVT prophylaxis: On heparin drip (1) Chest pain Qualifiers: Chest pain type: unspecified Qualified Code(s): R07.9 - Chest pain, unspecified (2) Hypertension Qualifiers: Hypertension type: unspecified Qualified Code(s): I10 - Essential (primary) hypertension
[2018-04-03] MEDS ORDERED: Aspirin 325 MG Tablet PO ONE ×2 (11:57→13:00)
[2018-04-03] MEDS ORDERED: Bisacodyl 10 MG Supp RECTAL PRN (11:57)
[2018-04-03] MEDS ORDERED: Acetaminophen 325 MG Tablet PO PRN (11:57)
[2018-04-03] MEDS ORDERED: Morphine Sulfate Inj 2 MG/ML Vial IV.PUSH PRN (12:07)
[2018-04-03] MEDS ORDERED: Heparin 10,000 UNITS/10 ML Vial (for IV use) IV.PUSH STA (12:30)
[2018-04-03 13:01] LABS: Chol/HDL Ratio 2.73 Ratio
[2018-04-03] MEDS: Lisinopril 5 MG Tablet PO SCH (13:05)
[2018-04-03] MEDS: Aspirin 325 MG Tablet PO SCH (13:09)
[2018-04-03 13:23] LABS: Activated Partial Thrombo Time 27.1 sec (23.4-31.7); INR 1.1 Ratio; Prothrombin Time 11.1 sec (9.8-11.6)
[2018-04-03] MEDS ORDERED: Iohexol 350 MG/ML 50 ML Vial (for Cath Lab) IVCONTRAST ONE (14:31)
--- NOTE | 2018-04-03 14:56 | ECG ---
Date Performed: 04/03/2018 Time Performed: 06:44:35 PTAGE: 77 years EKG: Sinus rhythm NONSPECIFIC ST & T-WAVE ABNORMALITY BORDERLINE ECG Compared to PREVIOUS TRACING , the lateral T-wave flattening is new but there has probably been impro vement in the previously noted ST depression. Serial changes are nonspecific but clincal correlation will be necessary. PREVIOUS TRACIN01/21/2018 17.33 DOCTOR: Aziza Hunt Interpretating Date/Time 04/03/2018 14:54:04
--- NOTE | 2018-04-03 15:44 | ECG ---
Date Performed: 04/03/2018 Time Performed: 10:45:45 PTAGE: 77 years EKG: Sinus rhythm WITH OCCASIONAL VENTRICULAR PREMATURE COMPLEXES BORDERLINE ECG Compared to prior electrocardiogram, Nonspecific T-wave changes have improved and possible PVC is present. PREVIOUS TRACING : 04/03/2018 06.44 DOCTOR: Adrian Hansen Interpretating Date/Time 04/03/2018 15:44:17
--- NOTE | 2018-04-03 15:48 | P.PNADD ---
Addendum to Inpatient Note Additional information: This addendum is to document a [facility] was called on this patient at approximately 1510, to which both Dr.s Franco and Liz responded. Subjective: Upon arrival to the room patient was experience significant substernal chest pressure. Subsequent bedside EKG revealed ST depressions in leads II, III and aVF. At that time patient was able to verbalize her pain reports that she was getting up to go to the bathroom when she experienced same pain that she was feeling at approximately 0130 this morning. She also reported feeling pain in her teeth. The pain was nonradiating, constant and described as pressure. Patient continued to feel this pressure until it was relieved by sublingual nitroglycerin. Patient also received Nitropaste and 2 mg of IV morphine for her chest pain. Upon reading the EKG I spoke with Dr. Cervantes over the phone who reported that he is becoming to take immediately to the [facility]. I spoke with [facility] who was already notified, and are on their way up to the patient. Objective: Vitals on arrival: BP-210/99 Heart rate of 84 98% on 3 L O2 nasal cannula Respiratory rate of 21 breaths/min Vital Signs 04/03/18 08:31 04/03/18 12:04 04/03/18 13:01 Pulse Rate 69 63 65 Respiratory Rate 18 18 18 Blood Pressure 171/79 H 184/79 H 136/68 Pulse Oximetry 100 98 98 Abnormal lab results 04/03/18 04/03/18 04/03/18 Range/Units 06:45 06:45 06:45 Hgb 11.4 L (11.6-15.3) gm/dL MCV 79.6 L (80.0-100.0) fL MCH 25.9 L (27.0-34.0) pg RDW 20.7 H (11.6-17.2) % Sodium 134 L (136-145) meq/L Estimated GFR 69 L (>89) mL/min POC Glucose (68-110) mg/dl Random Glucose 114 H (74-106) mg/dL Troponin I (0.02-0.05) ng/mL B-Natriuretic Peptide 145 H (0-100) pg/mL LDL Cholesterol, Calc (0-99) mg/dL HDL Cholesterol (40.0-60.0) mg/dL 04/03/18 04/03/18 04/03/18 Range/Units 10:35 10:35 15:16 Hgb (11.6-15.3) gm/dL MCV (80.0-100.0) fL MCH (27.0-34.0) pg RDW (11.6-17.2) % Sodium (136-145) meq/L Estimated GFR (>89) mL/min POC Glucose 114 H (68-110) mg/dl Random Glucose (74-106) mg/dL Troponin I 0.08 H (0.02-0.05) ng/mL B-Natriuretic Peptide (0-100) pg/mL LDL Cholesterol, Calc 103 H (0-99) mg/dL HDL Cholesterol 65.0 H (40.0-60.0) mg/dL Physical exam: GENERAL: Diaphoretic in acute distress. CARDIOVASCULAR: Regular rate and rhythm without obvious murmurs, gallops, or rubs. RESPIRATORY: Breath sounds equal bilaterally. No accessory muscle use. CTAB. NEURO/PSYCH: Afocal. Awake, alert, and acutely anxious. Assessment: This patient is a 77-year-old female with a history of stage III colon cancer status post hemicolectomy who presented to the ED with a 1 day history of chest pain 3 days after starting new chemotherapy Capecitabine, but now with new onset chest pain and new ST depressions in leads II, III and aVF. Plan: -Stat EKG which as stated showed ST depressions in leads II, III and aVF -[facility] notified -[facility] [employer] [facility] contacted via phone -2 g of IV morphine -Supplemental oxygen via nasal cannula -0.4 mg of sublingual nitroglycerin -2 mg of Nitropaste -Stat troponins -Patient transferred to [facility]
[2018-04-03] MEDS ORDERED: Hydrocortisone Sod Succinate 100 MG Vial ONE (15:56)
[2018-04-03] MEDS ORDERED: Famotidine PF Inj 20 MG/2 ML Vial ONE (15:57)
[2018-04-03] MEDS ORDERED: fentaNYL Citrate Inj 100 MCG/2 ML Ampul ONE (15:58)
[2018-04-03 16:03] LABS: Troponin I 0.1 ng/mL (0.02-0.05)
[2018-04-03] MEDS ORDERED: Heparin/NS PF Inj 1,000 ML ONE (16:04)
--- NOTE | 2018-04-03 16:39 | CATHPROC ---
[facility] HIS Report Study Information Study Number Admission Scheduled Start Study Start [id number] Apr 03 2018 11:57AM 04/03/2018 Apr 03 2018 3:29PM [place] [facility] Cardiac Catheterization Admit Source Facility Department Emergency department [facility] - Customer Engagement Specialist Physician and Clinical Staff Initial Fabian Coats Sample Preparation Supervisor Maricruz Dutton,RN Sample Preparation SupervisorNury Tan,TIANNA Recorder Tanner Vizcaino,RT(R) Scrub Nemo Cárdenas,RT(R) TECH2 X-Ray Maricruz GalanRT(R) Procedures Performed Procedure Location (Site) Vessel Name Coronary Angiograms LCA Left Coronary Coronary Angiograms RCA Right Coronary L Heart Cath LV Gram-hand inj. LV LV Ventricle Equipment Time Keno Writer / Runner Description Size Mfg Part Number Used/Scraped TRANSDUCER, TRUWAVE [id number] 15:43 CROW CAMPBELL * Used W/STOCKCOCK *[id number] [id number] *[id number] *[id number] 15:43 Hightail BLANKET,WARM AIR CCL * Used *[id number] 15:43 Hightail PACK, CCL CUSTOM * Used *[id number] 15:43 [employer] Mobile PACER PEN, SKIN DUAL W/ RULER * Used *[id number] 15:43 [employer] WIRE, 3MMJ .035 180CM 180CM Used *[id number] 15:43 NYCOMED OMNIPAQUE, 350 MG, 150ML 150ML [id number] Used [id number] 15:43 Loop Trolley[employer] MEDICAL SHEATH, FR4 TERUMO (10CM) FR 4 Used *[id number] History: Current Medications Medication Dosage/Unit Route Frequency Last Date/Time Taken ASA History: Allergies Allergy Reaction cyclobenzaprine Restlessness shellfish derived Rash History: Risk Factors Family History of Hypertension Dyslipidemia Previous MN Previous Heart Failure Premature CAD Yes No No No No Prior Valve Prior PCI Prior CABG Surgery No No No Cerebrovascular Peripheral Artery Chronic Lung On Dialysis Diabetes Disease Disease Disease No No No No No History: Symptoms/Diagnosis Selection Items Chest pain History: Stress Tests Stress or Imaging Studies Performed No History: Other Disease Selection Items Cancer HTN History: Other Current Smoker No Labs Hgb (g/dl) Hct (%) RBC (MIL/MM3) WBC (l/cumm) Platelets (thousands) 11.60-17.00 35.00-51.00 4.00-5.90 4.00-11.00 150.00-450.00 11.4 35.1 4.4 5.4 214 Glucose (mg/dl) BUN (mg/dl) Creatinine (mg/dl) BUN:Creatinine (1:x) 74.00-106.00 7.00-18.00 0.50-1.30 10.00-20.00 145 15 0.8 18.8 Na (meq/l) K (meq/l) Cl (meq/l) CO2 (mmol/L) Ca (mg/dl) 136.00-145.00 3.50-5.10 98.00-107.00 21.00-32.00 8.50-10.10 134 4.1 101 25.5 9.4 PT (sec) INR (PTT:PT) 9.80-11.60 0.90-1.10 11.1 1.1 Troponin I (ng/ml) CPK (u/l) CPK-MB (ng/ML) 0.02-0.05 26.00-308.00 0.50-3.60 0.08 47 Not Drawn Cholesterol (mg/dl) HDL (mg/dl) 120.00-200.00 40.00-60.00 178 65 Medication Medication Total Dose (Bolus/Oral) Medication Total Dosage/Unit 1% XYLOCAINE 20 mL BENADRYL 25 mg FENTANYL 25 mcg PEPCID 20 mg SOLU-CORTEF 100 mg VERSED 1 mg Medications (Bolus/Oral) Medication Time Given Dosage/Unit Administered By Reason BENADRYL 04/03/2018 3:59:00 PM 25 mg Hesher, Maricruz 25 mg BENADRYL given in lab by Maricruz Dutton, TIANNA via Peripheral IV. SOLU-CORTEF 04/03/2018 4:01:10 PM 100 mg Hesher, Maricruz 100 mg SOLU-CORTEF given in lab by Maricruz Dutton, TIANNA via Peripheral IV. PEPCID 04/03/2018 4:02:14 PM 20 mg Hesher, Maricruz 20 mg PEPCID given in lab by Maricruz Dutton, RN via Peripheral IV. VERSED 04/03/2018 4:15:13 PM 1 mg Hesher, Maricruz 1 mg VERSED given in lab by Maricruz Dutton RN in Left Antecubital via Peripheral IV. FENTANYL 04/03/2018 4:16:24 PM 25 mcg Maricruz Dutton 25 mcg FENTANYL given in lab by Maricruz Dutton RN in Left Antecubital via Peripheral IV. 1% XYLOCAINE 04/03/2018 4:18:59 PM 20 mL Fabian Cervantes 20 mL 1% XYLOCAINE given in lab by Fabian Cervantes in Right Groin via Subcutaneous. Medication (Drip) Medication Time Given Dosage/Unit Concentration/Unit Diluent (ml) Solution IV Bolus 04/03/2018 4:25:43 PM 1000 mL (Bolus) NaCl .9 1000 mL (Bolus) IV Bolus given in lab by Maricruz Dutton RN via Peripheral IV. Using NaCl .9. IV Solutions 04/03/2018 3:45:32 PM 0 mL (IV) 500 NaCl .9 IV Solutions given in lab by Maricruz Dutton RN via Peripheral IV. Pump/Drip Flow = 20 ml/hr using Na Cl .9. Final Case Assessment Cardiovascular HR Rhythm NIBP Chest Pain 79 reg 175/100 0 Edema Present Skin color Skin None Normal Warm Circulatory - Right Pulses Dorsalis Pedis Femoral 2 2 Scale (0,1,2,3,4,d) Circulatory - Left Pulses Dorsalis Pedis Femoral 2 2 Scale (0,1,2,3,4,d) Circulatory - Lower Extremities Color Lower Right Color Lower Left Normal Normal Neurological State Oriented to time-place- Alert Moves all extremities person Respiration - General Respiration Rate SpO2 (%) O2 (lpm) (B/min) 15 99 2 Chronological Log Time Study Chronological Log 15:44:31 Patient arrived via Bed. 15:44:32 Patient Name, D.O.B, / Armband Verified By R.N. 15:44:33 Consent signed by the physician and the patient and verified by the Customer Engagement Specialist staff. 15:44:36 Pre-op and post- op instructions given; patient acknowledges understanding of instructions. 15:44:37 Verbal Stimulation=2 Physical Stimulation=2 Airway=2 Respiration=2 TOTAL=8. (0=absent, 1=li mited, 2=present) 15:44:55 Patient has been NPO for More than 6Hrs. 15:44:56 Skin Breakdown- none per patient. 15:45:13 Patient Warmer Placed on the Table. 15:45:17 Alyssa Prominences Protected 15:45:21 A # 20 IV was noted in the Antecubital (left). Grade = 0 15:45:32 IV Solutions given in lab by Maricruz Dutton RN via Peripheral IV. Pump/Drip Flow = 20 ml/h r using NaCl .9. 15:45:33 History and physical on the chart or being dictated. 15:50:45 A # 20 IV was noted in the Antecubital (right). Grade = 0 Vitals capture started with the following parameters, Patient=Adult, Interval=5 min, Initial Pr xuajqg=855 mmHg, 15:51:30 Deflation Rate=5 mmHg, Cuff placed on Right Limb Vitals capture started with the following parameters, Patient=Adult, Interval=5 min, Initial Pr ruvtec=077 mmHg, 15:51:50 Deflation Rate=5 mmHg, Cuff placed on Right Limb 15:53:08 HR=71 bpm, GDGF=144/98 mmhg, RoH0=556.0 %, Resp=17 B/min, Pain=0, Polo=10, Vincent=2 15:57:36 HR=71 bpm, MSFH=633/97 mmhg, SyK7=842.0 %, Resp=26 B/min, Pain=0, Polo=10, Vincent=2 15:59:00 25 mg BENADRYL given in lab by Maricruz Dutton, TIANNA via Peripheral IV. 15:59:35 Bilateral groins prepped with 2% chlorhexidine, and draped after a 3 minute waiting time. 16:01:10 100 mg SOLU-CORTEF given in lab by Maricruz Dutton, TIANNA via Peripheral IV. 16:02:14 20 mg PEPCID given in lab by Maricruz Dutton, TIANNA via Peripheral IV. 16:02:35 HR=73 bpm, HAVI=069/94 mmhg, LdS4=125.0 %, Resp=19 B/min, Pain=0, Polo=10, Vincent=2 16:04:34 Pressure channel 1 zeroed. 16:04:38 paged 16:07:34 HR=73 bpm, KZTQ=364/98 mmhg, ZnP1=955.0 %, Resp=23 B/min, Pain=0, Polo=10, Vincent=2 16:10:18 MD responded 16:12:35 HR=72 bpm, TCVX=435/97 mmhg, AoF0=510.0 %, Resp=28 B/min, Pain=0, Polo=10, Vincent=2 16:12:59 MD arrived. 16:13:27 Reference ECG taken 16:15:13 1 mg VERSED given in lab by Maricruz Dutton RN in Left Antecubital via Peripheral IV. 16:16:24 25 mcg FENTANYL given in lab by Maricruz Dutton RN in Left Antecubital via Peripheral IV. 16:17:36 HR=71 bpm, RENI=898/79 mmhg, SyY1=412.0 %, Resp=17 B/min, Pain=0, Polo=10, Vincent=2 Time Out. Correct patient, correct procedure, correct physician, labs, allergies, and equipment verified with label stamper 16:18:44 team present. Fire risk assesment completed (see hard stop sheet for coding). Time Out Conc urred by MD and individual staff in procedure. 16:18:50 Case Start 16:18:59 20 mL 1% XYLOCAINE given in lab by Fabian Cervantes in Right Groin via Subcutaneous. 16:19:37 Access site was Right Femoral Artery. 16:19:47 A SHEATH, FR4 TERUMO (10CM) FR 4 was advanced into the Fem Art (right) using the Percutaneo us technique. 16:20:19 Activated Clotting Time Drawn A JR 4.0 INFINITI CATHETER FR 4 was advanced over a wire. OMNIPAQUE, 350 MG, 150ML 150ML was us ed for 16:20:47 injections. 16:22:29 HR=52 bpm, RJJN=753/100 mmhg, WzR3=634.0 %, Resp=16 B/min, Pain=0, Polo=10, Vincent=2 16:22:33 The LV was manually injected with 6 cc's and visualized. OMNIPAQUE, 350 MG, 150ML 150ML use d. Recorded Pressure: LV, HR=66, Condition=Condition 1 16:22:43 (Left Ventricle) LV 178/53/69 Recorded Pressure: Ao, HR=74, Condition=Condition 1 16:23:18 (Aorta) Ao 170/79/117 16:23:35 The RCA was injected and visualized at various angles. OMNIPAQUE, 350 MG, 150ML 150ML used . 16:23:44 Catheter was removed A JL 4.0 INFINITI CATHETER FR 4 was advanced over a wire. OMNIPAQUE, 350 MG, 150ML 150ML was us ed for 16:24:29 injections. 16:24:36 The LCA was injected and visualized at various angles. OMNIPAQUE, 350 MG, 150ML 150ML used . 16:25:23 Catheter was removed Assessment: Final Case, HR=79 BPM, Rhythm=reg, CYSC=372/100 mmhg, Chest Pain=0, Edema=None, Color=Normal, Skin = Warm Right Pulses: Junior Ped=2, Femoral=2 Left Pulses: Junior Ped=2, Femoral=2 16:25:38 Lower Right Extremities: Color=Normal Lower Left Extremities: Color=Normal Neurological: State=Alert, Ox3, PABLO Respiration: Resp=15 B/min, SpO2=99 %, O2=2 lpm 16:25:43 1000 mL (Bolus) IV Bolus given in lab by Maricruz Dutton, TIANNA via Peripheral IV. Using NaCl .9. 16:26:38 Catheter(s) removed without difficulty 16:27:33 HR=76 bpm, ZIIT=378/91 mmhg, SpO2=99.0 %, Resp=17 B/min, Pain=0, Polo=10, Vincent=2 16:28:55 Case End (Physician broke scrub) 16:30:39 Sheath removed; pressure applied to access site. ryan 16:32:32 HR=71 bpm, GTJK=263/89 mmhg, SpO2=99.0 %, Resp=22 B/min, Pain=0, Polo=10, Vincent=2 16:34:08 Sterile dressing applied to site 16:34:09 No case complications noted. 16:34:10 Cine recording checked. 16:34:13 Bedside Report will be given. 16:34:16 A Left Heart Cath was performed. 16:34:19 Clinical correlaton risk stratification. 16:37:31 HR=68 bpm, IIJR=250/94 mmhg, SpO2=98.0 %, Resp=26 B/min, Pain=0, Polo=10, Vincent=2 16:50:00 hemastasis acheived End Study - Contrast Media Used In Study Contrast Total Opened (mL) Total Used (mL) Total Wasted (mL) Omnipaque 350 40 40 0 End Study - Maximum Contrast Load Max Contrast Load (mL) 335.2 End Study - Radiation Exposure Fluoro Time Fluoro Dose (mGy) Cine Dose (uGym2) (minutes) 1.2 99 629 End Study - Sheaths Sheaths Pulled By Sheath Hold Time (min) Nemo Cárdenas End Study - Patient Disposition Complications Transferred To No Regular Bed
--- NOTE | 2018-04-03 17:11 | MR ---
cc: Fabian Cervantes MD DATE: 04/03/2018 PROCEDURE: Left heart catheterization, left ventriculography, coronary angiography. INDICATIONS FOR PROCEDURE: Unstable angina, multiple cardiac risk factors, high pretest probability for significant coronary artery disease, report of ST elevation in the anterolateral leads by the resident taking care of the patient, possible STEMI. The patient was brought to the cardiac catheterization laboratory and prepped and draped in the usual sterile fashion; 10 mL of 1% lidocaine was used to locally anesthetize the right common femoral artery. A 4-Malaysian sheath was placed in right common femoral artery. A 4-Malaysian JR4 and JL4 catheters were used to perform left and right coronary angiography and left ventriculography. FINDINGS: LV pressure is 160/2-5, EF 65%. The right coronary was dominant; no significant disease angiographically. Left main coronary artery has no significant disease angiographically. LAD has an ostial 20%-30% stenosis versus normal anatomic tapering, somewhat indeterminate. It is transapical, tortuous in the distal segment. No other obvious focal stenosis imaged. The left circumflex vessel has an ostial 20%-30% stenosis as well. Again, this may be partially normal anatomy versus focal plaque; it is indeterminate angiographically. Otherwise, there is no significant disease in the AV groove left circumflex; first and second diagonal and obtuse marginal vessels are 0.25 mm vessels with no significant obstructive disease. Third obtuse marginal vessel was a 1.5 mm - 2 mm vessel with no significant disease angiographically. Fourth obtuse marginal vessel was a 3.0 mm vessel; tortuous no significant disease angiographically. Also note, the first diagonal artery is a 2.0 mm vessel with no significant disease angiographically. Actually, also note that the proximal mid LAD has mild disease of 10% - 20% angiographically. CONCLUSION: 1. Angiographically mild 2-vessel coronary artery disease in a right dominant system as detailed above. 2. Normal left ventricular systolic function with ejection fraction to 65%. 3. Recommend medical management of coronary artery disease and cardiac risk factor modification. Fabian Cervantes MD AWC/diomedes , 04:36 PM , 04:43 PM
--- NOTE | 2018-04-03 17:37 | ECG ---
Date Performed: 04/03/2018 Time Performed: 15:08:16 PTAGE: 77 years EKG: Sinus rhythm . I would repeat EKG given in the artifact and also the fact that lead placement may be wrong. PREVIOUS TRACING : 04/03/2018 10.45 DOCTOR: Adrian Hansen Interpretating Date/Time 04/03/2018 17:36:28
--- NOTE | 2018-04-03 17:46 | MB ---
cc: Fabian Cervantes MD DATE: 04/03/2018 HISTORY OF PRESENT ILLNESS: Jessie is a 77-year-old lady with history of recently diagnosed colon cancer, status post surgery approximately 8 weeks prior to admission, recent chemotherapy, admitted with chief complaint of chest pain, seen by Dr. Kike Brunner in the ER who called me personally see felt the patient had a high pretest probability for significant coronary disease. We discussed doing heart catheterization due to that finding. Patient complained of severe chest pain. 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 Otherwise, denies any history of cough, GI or bleeding, PND, orthopnea PAST MEDICAL HISTORY: Per history of present illness. She has a history of anxiety, back pain, colon cancer, DVT, phlebitis, hypertension, Raynaud disease, shortness of breath, appendectomy, breast implant, cataract extraction, D and C. ALLERGIES: CYCLOBENZAPRINE AND SHELLFISH. SOCIAL HISTORY: Denies tobacco or alcohol use. MEDICATIONS: She received a heparin bolus in the ER. 1. Aspirin 325. 2. Atenolol 25 daily. 3. Lipitor 40 mg daily. 4. Lisinopril 2.5 daily. 5. Metoprolol 25 b.i.d. 6. Nitro paste 0.5 half inch q.6 hours. PHYSICAL EXAMINATION: VITAL SIGNS: Initial blood pressure 213/100, last blood pressure 136/68, pulse 65, respiratory rate 18. GENERAL: She is alert and oriented x3, in no acute distress. NECK: Supple. No JVD. No bruit. CARDIOVASCULAR: S1, S2. No murmurs, rubs or gallops. LUNGS: Clear to auscultation bilaterally. ABDOMEN: Soft, nontender, nondistended with positive bowel sounds. EXTREMITIES: No lower extremity edema. LABORATORY DATA: White count 5.4, hemoglobin 9.4, hematocrit 35.1, platelet count 214. INR is 1.1. Sodium 134, potassium 4.1, chloride 101, bicarbonate 25.5, BUN 15, creatinine 0.81. BNP is 145. Troponin initially 0.04 followed by 0.08, 0.10. LDL is 103. INR 1.1. EKG shows a normal sinus rhythm at 81 beats per minute, nonspecific ST-T wave changes. There is also T-wave inversion in V5, V6. This may be due to lead misplacement as the R-wave is essentially absent in V5 and V6 compared to the previous EKG done during this admission. DIAGNOSES: 1. Hypertensive urgency. 2. Non-ST myocardial infarction. 3. Colon cancer. DISCUSSION: It is indeterminate whether the patient's chest pain and troponin elevation are secondary to severe hypertension versus primary obstructive etiology to her symptoms and troponin elevation. She is having ongoing chest pain. Plan is for emergent left heart catheterization. Fabian Cervantes MD AWC/ct , 04:43 PM , 04:50 PM
[2018-04-03] MEDS ORDERED: ALPRAZolam 0.25 MG Tablet PO SCH (21:00)
[2018-04-03] MEDS: Metoprolol Tartrate 25 MG Tablet PO SCH (21:53)
[2018-04-03] MEDS: Senna/Docusate Sodium 8.6/50 MG Tablet PO SCH (21:53)
[2018-04-03 22:46] LABS: Troponin I 0.2 ng/mL (0.02-0.05)
--- NOTE | 2018-04-04 07:01 | P.PNFP ---
Subjective Interval history: This progress note is written in conjunction with resident H&P dated 04/03/2018. Mariela Otto is a 77 yo lady with medical history significant for HTN and colon CA s/p hemicolectomy admitted for 1 day history of chest pain, described as a heaviness in her chest upon awakening the morning of admission; pressure, constant and does not radiate. In addition, she did note palpitations. She relates the chest pain to beginning a new chemotherapy regimen 3 days prior. Of note, chest pain was relieved by NTG in [facility]. She underwent cardiac catheterization in the late afternoon yesterday, which demonstrated angiographically mild CAD. Medical management was recommended. Overnight, blood pressure has improved. She did have an episode of chest pain last night, relieved by nitro, which was milder than previous. This morning, pt reports feeling well enough to go home. She has a few questions about the cath results. No chest pain currently. ROS: Per resident H&P. PMH/PSxH/SocHx/FamHx:Colon CA, stage 3 - currently on chemotherapy and s/p hemicolectomy; h/o DVT with , anxiety. Never smoker. No recreational drugs. FamHx: no known CAD. Results - Labs Result diagrams: 04/04/18 07:13 04/04/18 07:13 Abnormal lab results 04/03/18 04/03/18 04/03/18 Range/Units 06:45 06:45 06:45 Hgb 11.4 L (11.6-15.3) gm/dL MCV 79.6 L (80.0-100.0) fL MCH 25.9 L (27.0-34.0) pg RDW 20.7 H (11.6-17.2) % Sodium 134 L (136-145) meq/L Estimated GFR 69 L (>89) mL/min POC Glucose (68-110) mg/dl Random Glucose 114 H (74-106) mg/dL Troponin I (0.02-0.05) ng/mL B-Natriuretic Peptide 145 H (0-100) pg/mL LDL Cholesterol, Calc (0-99) mg/dL HDL Cholesterol (40.0-60.0) mg/dL 04/03/18 04/03/18 04/03/18 Range/Units 10:35 10:35 15:16 Hgb (11.6-15.3) gm/dL MCV (80.0-100.0) fL MCH (27.0-34.0) pg RDW (11.6-17.2) % Sodium (136-145) meq/L Estimated GFR (>89) mL/min POC Glucose 114 H (68-110) mg/dl Random Glucose (74-106) mg/dL Troponin I 0.08 H (0.02-0.05) ng/mL B-Natriuretic Peptide (0-100) pg/mL LDL Cholesterol, Calc 103 H (0-99) mg/dL HDL Cholesterol 65.0 H (40.0-60.0) mg/dL 04/03/18 04/03/18 Range/Units 15:31 21:48 Hgb (11.6-15.3) gm/dL MCV (80.0-100.0) fL MCH (27.0-34.0) pg RDW (11.6-17.2) % Sodium (136-145) meq/L Estimated GFR (>89) mL/min POC Glucose (68-110) mg/dl Random Glucose (74-106) mg/dL Troponin I 0.10 H 0.20 H D (0.02-0.05) ng/mL B-Natriuretic Peptide (0-100) pg/mL LDL Cholesterol, Calc (0-99) mg/dL HDL Cholesterol (40.0-60.0) mg/dL Short CBC 04/03/18 Range/Units 06:45 WBC 5.4 (4.0-11.0) th/mm3 Hgb 11.4 L (11.6-15.3) gm/dL Hct 35.1 (35.0-46.0) % Plt Count 214 (150-450) th/mm3 [facility] 04/03/18 06:45 Sodium 134 L Potassium 4.1 Chloride 101 Carbon Dioxide 25.5 BUN 15 Creatinine 0.81 Calcium 9.4 Cardiac Enzymes 04/03/18 04/03/18 04/03/18 Range/Units 06:45 10:35 15:31 Total Creatine Kinase 48 47 50 (26-192) U/L Troponin I 0.04 0.08 H 0.10 H (0.02-0.05) ng/mL 04/03/18 Range/Units 21:48 Total Creatine Kinase 36 (26-192) U/L Troponin I 0.20 H D (0.02-0.05) ng/mL Liver Function 04/03/18 Range/Units 06:45 Total Bilirubin 0.2 (0.2-1.0) mg/dL AST 18 (15-37) U/L ALT 16 (10-53) U/L Alkaline Phosphatase 57 (45-117) U/L Albumin 3.9 (3.4-5.0) g/dL - Imaging Impressions Chest X-Ray 04/03/18 06:55 CONCLUSION: No focal or acute pulmonary infiltrates. Physical Exam Vital signs: Vital Signs 04/03/18 07:12 04/03/18 08:31 04/03/18 12:04 Temperature Pulse Rate 73 69 63 Respiratory Rate 20 18 18 Blood Pressure 213/100 H 171/79 H 184/79 H Pulse Oximetry 100 100 98 04/03/18 13:01 04/03/18 17:27 04/03/18 18:00 Temperature 98.0 F Pulse Rate 65 73 64 Respiratory Rate 18 18 Blood Pressure 136/68 174/87 H Pulse Oximetry 98 99 04/03/18 20:00 04/03/18 21:00 04/03/18 22:00 Temperature 97.8 F Pulse Rate 63 67 72 Respiratory Rate 22 Blood Pressure 149/75 H Pulse Oximetry 98 04/03/18 23:00 04/04/18 00:00 04/04/18 01:00 Temperature 98.3 F Pulse Rate 65 64 64 Respiratory Rate 24 Blood Pressure 129/70 Pulse Oximetry 98 04/04/18 02:00 04/04/18 03:00 04/04/18 04:00 Temperature 98.4 F Pulse Rate 67 58 L 57 L Respiratory Rate 24 Blood Pressure 113/62 Pulse Oximetry 97 04/04/18 05:00 04/04/18 06:00 Temperature Pulse Rate 65 82 Respiratory Rate Blood Pressure Pulse Oximetry Intake & Output 04/03/18 04/04/18 04/04/18 18:59 06:59 18:59 Intake Total 1490 / 1490 720 / 720 Output Total 1050 / 1050 Balance 1490 / 1490 -330 / -330 Weight 52.2 kg Intake: IV 10 / 10 Heparin/NS PF Inj 1,000 ML @ 0 10 / 10 mls/hr .ROUTE .STK-MED ONE Rx#: [id number] Oral 480 / 480 720 / 720 Anesthesia Amount 1000 / 1000 Output: Urine 1050 / 1050 Other: Date of Last Bowel Movement 04/02/18 Narrative: Per resident H&P. Significant for: In NAD, no resp distress, nontoxic. RRR, S1 S2. CTAB. No tenderness to palpation of sternum. No significant edema. Varicose veins. No calf tenderness. Assessment and Plan - Assessment (1) Chest pain Code(s): R07.9 - Chest pain, unspecified Status: Acute Plan: This patient is a 77-year-old female with a history of stage III colon cancer status post hemicolectomy who presents to the ED with a 1 day history of chest pain 3 days after starting new chemotherapy Capecitabine. -DDx includes ACS, GERD, PE, pneumonia, panic attack, myocarditis, costochondritis. -Pt. states CP has resolved with nitro. POD#1 cardiac cath, which demonstrated mild CAD. These results were reviewed with patient, and medical management will be started at discharge. Discussed with patient that she should review her chemotherapy agent with her oncologist, to determine if that is the cause. Will discharge home with KANDY inhibitor, statin, and ASA 81mg for medical management. Also, SL NTG and PPI. (2) Hypertension Code(s): I10 - Essential (primary) hypertension Status: Chronic Plan: BP improved overnight. Continue medications as ordered. (3) History of colon cancer Code(s): Z85.038 - Personal history of other malignant neoplasm of large intestine Status: Chronic Plan: Patient status post hemicolectomy secondary to stage III colon cancer. Patient began recent oral chemotherapy days ago and was unable to tolerate it. -Hold Capecitabine. Pt will review with her oncologist if this is safe to be restarted. (4) S/P colectomy Code(s): Z90.49 - Acquired absence of other specified parts of digestive tract Status: Chronic Plan: Stable, no intervention required at this time - Attending Attestation Patient seen, examined, and discussed with resident team. I certify that a two midnight stay was warranted and anticipated. (1) Chest pain Qualifiers: Chest pain type: unspecified Qualified Code(s): R07.9 - Chest pain, unspecified (2) Hypertension Qualifiers: Hypertension type: unspecified Qualified Code(s): I10 - Essential (primary) hypertension
[2018-04-04 07:34] LABS: Baso % (Auto) 0.4 % (0.0-2.0); Hematocrit 32.8 % (35.0-46.0); Hemoglobin 10.8 gm/dL (11.6-15.3); Lymph # (Auto) 1.6 th/mm3 (1.0-4.8); Lymph % (Auto) 36.4 % (9.0-44.0); Mean Corpuscular HGB Conc 32.8 % (32.0-36.0); Mean Corpuscular Hemoglobin 25.8 pg (27.0-34.0); Mean Corpuscular Volume 78.8 fL (80.0-100.0); Mean Platelet Volume 7.6 fL (7.0-11.0); Mono # (Auto) 0.4 th/mm3 (0.0-0.9); Mono % (Auto) 8.5 % (0.0-8.0); Neut # (Auto) 2.4 th/mm3 (1.8-7.7); Neut % (Auto) 54.7 % (16.0-70.0); Platelet Count 209 th/mm3 (150-450); Red Blood Count 4.16 mil/mm3 (4.00-5.30); Red Cell Distribution Width 20.7 % (11.6-17.2); White Blood Count 4.4 th/mm3 (4.0-11.0)
[2018-04-04 07:37] LABS: INR 1.1 Ratio; Prothrombin Time 11.1 sec (9.8-11.6)
[2018-04-04 08:24] LABS: Alanine Aminotransferase 12 U/L (10-53); Albumin 3.2 g/dL (3.4-5.0); Alkaline Phosphatase 44 U/L (45-117); Anion Gap 6 meq/L (5-15); Aspartate Aminotransferase 13 U/L (15-37); Blood Urea Nitrogen 13 mg/dL (7-18); Calcium 8.5 mg/dL (8.5-10.1); Carbon Dioxide 27.3 meq/L (21.0-32.0); Chloride 106 meq/L (98-107); Glomerular Filtration Rate 72 mL/min (>89); Glucose,Random 93 mg/dL (74-106); Potassium 3.6 meq/L (3.5-5.1); Sodium 139 meq/L (136-145); Total Protein 6.3 g/dL (6.4-8.2)
[2018-04-04] MEDS: Aspirin 325 MG Tablet PO SCH (08:28)
[2018-04-04] MEDS: Metoprolol Tartrate 25 MG Tablet PO SCH (08:29)
[2018-04-04] MEDS: Lisinopril 5 MG Tablet PO SCH (08:30)
[2018-04-04] MEDS: Senna/Docusate Sodium 8.6/50 MG Tablet PO SCH (08:32)
--- NOTE | 2018-04-04 13:30 | P.PNCA ---
Subjective Interval history: assymptomatic in nad Medications and Allergies Active Medications: Active Medications Acetaminophen (Tylenol) 650 mg PO Q4H PRN PRN Reason: Temp > 100.4 Al Hydroxide/Mg Hydroxide (Milk Of Magnesia Liq) 30 ml PO Q12H PRN PRN Reason: Mild Constipation Alprazolam (Xanax) 0.25 mg PO Q6H PRN PRN Reason: ANXIETY Aspirin (Aspirin) 325 mg PO DAILY [facility] Last Admin: 04/04/18 08:28 Dose: 325 mg Atenolol (Tenormin) 25 mg PO DAILY [facility] Last Admin: 04/03/18 12:04 Dose: 25 mg Atorvastatin Calcium (Lipitor) 40 mg PO DAILY [facility] Last Admin: 04/04/18 08:34 Dose: Not Given Bisacodyl (Dulcolax Supp) 10 mg RECTAL DAILY PRN PRN Reason: SEVERE CONSITIPATION Enalaprilat (Vasotec Inj) 1.25 mg IV.PUSH Q6H PRN PRN Reason: SBP> OR = 180, DBP> OR = 100 Lactulose (Lactulose Liq) 30 ml PO DAILY PRN PRN Reason: SEVERE CONSITIPATION Lisinopril (Prinivil) 2.5 mg PO DAILY [facility] Last Admin: 04/04/18 08:30 Dose: 2.5 mg Metoprolol Tartrate (Lopressor) 25 mg PO BID [facility] Last Admin: 04/04/18 08:29 Dose: 25 mg Miscellaneous (Pill Splitter) 1 each OTHER UNSCH PRN PRN Reason: SEE LABEL COMMENTS Morphine Sulfate (Morphine Inj) 2 mg IV.PUSH Q3H PRN PRN Reason: CHEST PAIN Last Admin: 04/03/18 15:14 Dose: 2 mg Nitroglycerin (Nitro-Bid 2% Oint) 0.5 inch TOPICAL Q6H PRN PRN Reason: CHEST PAIN Last Admin: 04/03/18 15:00 Dose: 0.5 inch Ondansetron HCl (Zofran Inj) 4 mg IV.PUSH Q6H PRN PRN Reason: NAUSEA OR VOMITING Senna/Docusate Sodium (Jessica-Colace) 1 tab PO BID [facility] Last Admin: 04/04/18 08:32 Dose: Not Given Sennosides (Senokot) 17.2 mg PO Q12H PRN PRN Reason: Moderate Constipation Sodium Chloride (Ns Flush) 2 ml IV.FLUSH BID [facility] Last Admin: 04/04/18 08:37 Dose: 2 ml Sodium Chloride (Ns Flush) 2 ml IV.FLUSH PRN PRN PRN Reason: FLUSH AFTER USING IV ACCESS Allergies Allergy/AdvReac Type Severity Reaction Status Date / Time cyclobenzaprine Allergy Severe Restlessnes Verified 01/30/18 07:43 [From Flexeril] s shellfish derived Allergy Severe Rash Verified 01/30/18 07:43 Home Medications Medication Instructions Recorded Confirmed Type alprazolam 0.25 mg PO BID 01/21/18 04/03/18 History atenolol 25 mg PO DAILY 01/21/18 04/03/18 History Physical Exam Vital signs: Vital Signs 04/03/18 17:27 04/03/18 18:00 04/03/18 20:00 Temperature 98.0 F 97.8 F Pulse Rate 73 64 63 Respiratory Rate 18 22 Blood Pressure 174/87 H 149/75 H Pulse Oximetry 99 98 04/03/18 21:00 04/03/18 22:00 04/03/18 23:00 Temperature Pulse Rate 67 72 65 Respiratory Rate Blood Pressure Pulse Oximetry 04/04/18 00:00 04/04/18 01:00 04/04/18 02:00 Temperature 98.3 F Pulse Rate 64 64 67 Respiratory Rate 24 Blood Pressure 129/70 Pulse Oximetry 98 04/04/18 03:00 04/04/18 04:00 04/04/18 05:00 Temperature 98.4 F Pulse Rate 58 L 57 L 65 Respiratory Rate 24 Blood Pressure 113/62 Pulse Oximetry 97 04/04/18 06:00 04/04/18 07:00 04/04/18 08:00 Temperature Pulse Rate 82 66 64 Respiratory Rate Blood Pressure Pulse Oximetry 04/04/18 08:26 04/04/18 09:00 04/04/18 10:00 Temperature 98.5 F Pulse Rate 65 64 62 Respiratory Rate 16 Blood Pressure 139/62 Pulse Oximetry 100 04/04/18 11:00 04/04/18 12:00 04/04/18 12:18 Temperature 98.2 F Pulse Rate 56 L 58 L 58 L Respiratory Rate 17 Blood Pressure 139/62 Pulse Oximetry 99 Intake & Output 04/03/18 04/04/18 04/04/18 18:59 06:59 18:59 Intake Total 1490 / 1490 720 / 720 Output Total 1050 / 1050 Balance 1490 / 1490 -330 / -330 Weight 52.2 kg Intake: IV 10 / 10 Heparin/NS PF Inj 1,000 ML @ 0 10 / 10 mls/hr .ROUTE [facility] Rx#: [id number] Oral 480 / 480 720 / 720 Anesthesia Amount 1000 / 1000 Output: Urine 1050 / 1050 Other: Date of Last Bowel Movement 04/02/18 04/04/18 - Constitutional no acute distress - Routine HEENT Exam Head: Present: normocephalic - Routine Neck Exam Present: supple - Routine Respiratory Exam Present: CTA bilaterally - Routine Cardiovascular Exam Present: S1, S2 - Routine Abdominal Exam Present: soft - Routine Extremities Exam Comments: no estephania Results 04/04/18 07:13 04/04/18 07:13 Cardiac Enzymes 04/03/18 04/03/18 04/03/18 Range/Units 06:45 06:45 10:35 AST 18 (15-37) U/L Troponin I 0.04 0.08 H (0.02-0.05) ng/mL B-Natriuretic Peptide 145 H (0-100) pg/mL 04/03/18 04/03/18 04/04/18 Range/Units 15:31 21:48 07:13 AST 13 L (15-37) U/L Troponin I 0.10 H 0.20 H D (0.02-0.05) ng/mL B-Natriuretic Peptide (0-100) pg/mL Coagulation 04/03/18 04/03/18 04/03/18 Range/Units 06:45 13:00 18:36 PT 11.1 (9.8-11.6) sec APTT 27.1 27.1 (23.4-31.7) sec B-Natriuretic Peptide 145 H (0-100) pg/mL 04/04/18 Range/Units 07:13 PT 11.1 (9.8-11.6) sec APTT (23.4-31.7) sec B-Natriuretic Peptide (0-100) pg/mL Lipids 04/03/18 Range/Units 10:35 Triglycerides 52 (42-150) mg/dL Cholesterol 178 (120-200) mg/dL HDL Cholesterol 65.0 H (40.0-60.0) mg/dL Cholesterol/HDL Ratio 2.73 Ratio CBC 04/03/18 04/04/18 Range/Units 06:45 07:13 WBC 5.4 4.4 (4.0-11.0) th/mm3 RBC 4.41 4.16 (4.00-5.30) mil/mm3 Hgb 11.4 L 10.8 L (11.6-15.3) gm/dL Hct 35.1 32.8 L (35.0-46.0) % Plt Count 214 209 (150-450) th/mm3 Neut # (Auto) 3.7 2.4 (1.8-7.7) th/mm3 Lymph # (Auto) 1.3 1.6 (1.0-4.8) th/mm3 [place] # (Auto) 0.3 0.4 (0.0-0.9) th/mm3 Eos # (Auto) 0.0 0.0 (0.0-0.4) th/mm3 Baso # (Auto) 0.0 0.0 (0.0-0.2) th/mm3 Comprehensive Metabolic Panel 04/03/18 04/04/18 Range/Units 06:45 07:13 Sodium 134 L 139 (136-145) meq/L Potassium 4.1 3.6 (3.5-5.1) meq/L Chloride 101 106 (98-107) meq/L Carbon Dioxide 25.5 27.3 (21.0-32.0) meq/L BUN 15 13 (7-18) mg/dL Creatinine 0.81 0.78 (0.50-1.00) mg/dL Calcium 9.4 8.5 D (8.5-10.1) mg/dL AST 18 13 L (15-37) U/L ALT 16 12 (10-53) U/L Alkaline Phosphatase 57 44 L (45-117) U/L Total Protein 7.4 6.3 L D (6.4-8.2) g/dL Albumin 3.9 3.2 L D (3.4-5.0) g/dL Intake and Output 04/03/18 04/04/18 04/04/18 22:59 06:59 14:59 Intake Total 1490 / 1490 720 / 720 Output Total 1050 / 1050 Balance 1490 / 1490 -330 / -330 Intake: IV 10 / 10 Heparin/NS PF Inj 1,000 ML @ 0 10 / 10 mls/hr .ROUTE [facility] Rx#: [id number] Oral 480 / 480 720 / 720 Anesthesia Amount 1000 / 1000 Output: Urine 1050 / 1050 Other: Date of Last Bowel Movement 04/02/18 04/02/18 04/04/18 Weight 52.2 kg - Imaging and Cardiology Imaging: Impressions Chest X-Ray 04/03/18 06:55 CONCLUSION: No focal or acute pulmonary infiltrates. Assessment and Plan - Assessment (1) CAD (coronary artery disease) Code(s): I25.10 - Atherosclerotic heart disease of [place] coronary artery without angina pectoris Status: Acute (2) NSTEMI (non-ST elevated myocardial infarction) Code(s): I21.4 - Non-ST elevation (NSTEMI) myocardial infarction Status: Acute (3) Hypertension Code(s): I10 - Essential (primary) hypertension Status: Chronic - Plan 1.) CAD - assymptomatic, continue aspirin, lipitor; troponin elevation probably due to severe htn with sbp > 210 (3) Hypertension Qualifiers: Hypertension type: unspecified Qualified Code(s): I10 - Essential (primary) hypertension
== END 2018-04-04 14:32 | disposition home or self-care (01) | DRG 287 ==
LOC: NEPC 06:37 → NEDA 06:37 → N04 14:49 → HCIS 15:34
PROVIDERS: ADMIT Family Medicine; ATTEND Family Medicine
CPT/HCPCS: 71010; 71045; 80053; 80061; 82550; 82948; 82962; 83520; 83880; 84484; 85002; 85025; 85610; 85730; 93005; 93458; 99152; 99285; C1769; C1893; J1200; J1644; J1720; J2250; J2270; J3010; Q9967